=== PATIENT | female | born 1960 | race Caucasian/White ===

== ENCOUNTER 2017-03-19 18:22 | Inpatient (IN) | payer OTHER ==
[2017-03-19] MEDS ORDERED: ACETAMINOPHEN TAB 500 MG TAB PO STA (19:12)
[2017-03-19] MEDS ORDERED: IBUPROFEN 600 MG TAB PO STA (19:12)
[2017-03-19] MEDS ORDERED: PIPERACILLIN-TAZOBACTAM 3.375 GM in DEXTROSE/WATER 1 50ML.BAG IVPB STA (19:12)
[2017-03-19] MEDS ORDERED: SODIUM CHLORIDE 0.45% 1,000 ML IV SCH (19:15)
[2017-03-19] MEDS ORDERED: HYDROmorphone 1 MG/ML 1 ML SYRINGE IVP STA ×2 (19:16→22:34)
[2017-03-19] MEDS ORDERED: IOHEXOL 350 MG/ML 25 ML BOTTLE (ORAL USE) PO PRN (19:17)
[2017-03-19] MEDS ORDERED: RX INFO: IV CONTRAST WAS GIVEN 1 EACH MISC MISCELLANE PRN (19:17)
--- NOTE | 2017-03-19 19:35 | ED ---
Abdominal Pain HPI <Larry Grier - Last Filed: 03/19/17 22:34> - General Source: patient, RN notes reviewed, old records reviewed Mode of arrival: ambulatory <Monica Zelaya - Last Filed: 03/19/17 22:56> - General Chief Complaint: Abdominal Pain Stated Complaint: POSS APPENDICITIS Time Seen by Provider: 03/19/17 18:56 - History of Present Illness Initial Comments: This is a 56-year-old female presents to the emergency Department chief complaint of right lower quadrant abdominal pain, fevers, and headache since Thursday evening. Patient reports that she missed her primary care doctor and they sent her to have a CAT scan done at [facility] yesterday. At that time she reports her CAT scan was inconclusive. She's been running a fever 140 101 for the past few days. She's had no recent Motrin or Tylenol. She reports she's had very little appetite and nausea. Denies any melena or hematochezia. Patient states that she's had a few loose stools. Patient relates that she's also noticed that the pain radiates from her right lower quadrant towards her right back. She has not been drinking fluids such noticed her urine has been darker than usual. Patient relates that she has no neck pain or neck stiffness, vision changes, chest pain, shortness of breath. She reports that she's had a history of sinus infections over the past few months, antibiotics use was approximately 2 months ago and she completed a steroid course approximately 2 weeks ago. Patient denies any recent shortness of breath, chest pain, back pain, vomiting, numbness or tingling, hematuria, headaches or visual changes, or any other current symptoms (Monica Zelaya) - Related Data Home Medications Medication Instructions Recorded Confirmed Budesonide/Formoterol Fumarate 1 puff INHALATION RT-BID 03/19/17 03/19/17 [Symbicort 160-4.5 Mcg Inhaler] Cetirizine HCl [Zyrtec] 10 mg PO DAILY PRN 03/19/17 03/19/17 Chlorthalidone 25 mg PO DAILY 03/19/17 03/19/17 HYDROcodone/APAP 7.5-325MG [[place] 1 tab PO TID 03/19/17 03/19/17 7.5-325] Ibuprofen [Advil] 200 mg PO Q8HR PRN 03/19/17 03/19/17 Letrozole [Femara] 2.5 mg PO DAILY 03/19/17 03/19/17 QUEtiapine [SEROquel] 50 mg PO HS 03/19/17 03/19/17 Topiramate [Topamax] 25 mg PO BID 03/19/17 03/19/17 Venlafaxine HCl [Effexor XR] 75 mg PO DAILY 03/19/17 03/19/17 cloNIDine HCL 0.3 mg PO TID 03/19/17 03/19/17 clonazePAM [KlonoPIN] 0.5 mg PO TID 03/19/17 03/19/17 diphenhydrAMINE HCL [Benadryl] 25 mg PO DAILY PRN 03/19/17 03/19/17 Allergies Allergy/AdvReac Type Severity Reaction Status Date / Time Sulfa (Sulfonamide Allergy Rash/Hives Verified 03/19/17 19:01 Antibiotics) Review of Systems ROS Other: All systems not noted in ROS Statement are negative. <Larry Grier - Last Filed: 03/19/17 22:34> ROS Other: All systems not noted in ROS Statement are negative. <Monica Zelaya - Last Filed: 03/19/17 22:56> ROS Statement: Those systems with pertinent positive or pertinent negative responses have been documented in the HPI. Past Medical History Past Medical History: Cancer, Hypertension Additional Past Medical History / Comment(s): BREAST AND OVARIAN CANCER History of Any Multi-Drug Resistant Organisms: None Reported Past Surgical History: Hysterectomy Additional Past Surgical History / Comment(s): PARTIAL MASTECTOMY Past Psychological History: Depression Smoking Status: Never smoker Past Alcohol Use History: Occasional Past Drug Use History: None Reported <Monica Zelaya - Last Filed: 03/19/17 22:56> General Exam <Larry Grier - Last Filed: 03/19/17 22:34> General appearance: alert, in no apparent distress Head exam: Present: atraumatic, normocephalic, normal inspection Eye exam: Present: normal appearance, PERRL, EOMI. Absent: scleral icterus, conjunctival injection, periorbital swelling ENT exam: Present: normal exam, mucous membranes moist Neck exam: Present: normal inspection. Absent: tenderness, meningismus, lymphadenopathy Respiratory exam: Present: normal lung sounds bilaterally. Absent: respiratory distress, wheezes, rales, rhonchi, stridor Cardiovascular Exam: Present: regular rate, normal rhythm, normal heart sounds. Absent: systolic murmur, diastolic murmur, rubs, gallop, clicks GI/Abdominal exam: Present: soft, tenderness (RLQ and RUQ and Right CVA tenderness), normal bowel sounds. Absent: distended, guarding, rebound, rigid Extremities exam: Present: normal inspection, full ROM, normal capillary refill. Absent: tenderness, pedal edema, joint swelling, calf tenderness Back exam: Present: normal inspection Neurological exam: Present: alert, oriented X3, CN II-XII intact Psychiatric exam: Present: normal affect, normal mood Skin exam: Present: warm, dry, intact, normal color. Absent: rash <Monica Zelaya - Last Filed: 03/19/17 22:56> - General Exam Comments Initial Comments: 56-year-old female. Appears in moderate discomfort. (Monica Zelaya) Vital Signs 03/19/17 03/19/17 03/19/17 18:47 20:00 21:00 Temperature 101.8 F H 99.8 F H Pulse Rate 92 90 96 Respiratory 18 18 20 Rate Blood Pressure 154/89 136/80 148/90 O2 Sat by Pulse 97 98 98 Oximetry 03/19/17 22:29 Temperature 98.9 F Pulse Rate 65 Respiratory 20 Rate Blood Pressure 103/58 O2 Sat by Pulse 97 Oximetry Medical Decision Making - Lab Data Result diagrams: 03/19/17 15:45 03/19/17 15:45 <Larry Grier - Last Filed: 03/19/17 22:34> - Lab Data Result diagrams: 03/19/17 15:45 03/19/17 15:45 - Radiology Data Radiology results: report reviewed <Monica Zelaya - Last Filed: 03/19/17 22:56> - Medical Decision Making vital decision making. I examine the patient she has pain in the right flank toward the right mid abdomen and right lower quadrant. Patient reports his pains began on again off again for 6-7 days. She had a CAT scan done [facility] yesterday which was nonspecific relative to the appendix and that he could not be seen. The patient's fever spiked today 101.8. She is comfortable with our emergency room. The significant findings today finds a white count of 13.7 hemoglobin 13 hematocrit 39 with a BUN of 17 creatinine 0.7 GFR greater than 60. The patient's CAT scan does show 2 mm ureteral calculus within the proximal right ureter with mild surrounding. Referral fat stranding in a euro epithelial thickening. No resultant hydronephrosis noted. urine shows 111 white cells 2 red cells large leuk esterase no significant epithelial 4 squamous cells.This case was discussed with on-call urologist Dr. Humphrey. Results examination CAT scan labs all discussed. He wants the patient admitted to medicine. Antonia nurse practitioner taking call for Dr. Morgan has been notified. The patient had been started on Zosyn early presumptive diagnosis of appendicitis initially. She'll be switched to Levaquin. We also discussed possibility of pyelonephritis. For the evaluation by urology. Dr. Grier (Larry Grier) 56-year-old male presents emergency Department with right lower quadrant and right flank pain for the past 7 days as well as a headache. She had a CAT scan done yesterday which showed no specific findings. She fever again and prescribed her, emergency department. At this time patient's lab work shows mild leukocytosis of 13.7. Patient does have a significant urinary tract infection with 100 white blood cells, nitrates are negative however. Patient was given IV fluids, and started on Zosyn as clinically she seemed to have more of a picture of appendicitis. Patient's CAT scan shows evidence of a 2 mm stone in the right ureter as well as some perinephric stranding and inflammation. Discussed this with Heather, nurse practitioner for Dr. kaye. We will also consult Dr. mahoney for urology. He prefers that patient is admitted under medicine with consult to urology. At this time patient will be started on Levaquin as well. Patient understands treatment plan will comply. (Monica Zelaya) - Lab Data Lab Results 03/19/17 03/19/17 03/19/17 Range/Units 15:45 15:45 15:45 WBC 13.7 H (3.8-10.6) k/uL RBC 4.05 (3.80-5.40) m/uL Hgb 13.4 (11.4-16.0) gm/dL Hct 39.0 (34.0-46.0) % MCV 96.4 (80.0-100.0) fL MCH 33.2 (25.0-35.0) pg MCHC 34.4 (31.0-37.0) g/dL RDW 13.9 (11.5-15.5) % Plt Count 241 (150-450) k/uL Neutrophils % 85 % Lymphocytes % 7 % Monocytes % 5 % Eosinophils % 1 % Basophils % 1 % Neutrophils # 11.7 H (1.3-7.7) k/uL Lymphocytes # 1.0 (1.0-4.8) k/uL Monocytes # 0.7 (0-1.0) k/uL Eosinophils # 0.1 (0-0.7) k/uL Basophils # 0.1 (0-0.2) k/uL PT (9.0-12.0) sec INR (<1.2) APTT (22.0-30.0) sec Sodium 133 L (137-145) mmol/L Potassium 3.7 (3.5-5.1) mmol/L Chloride 100 (98-107) mmol/L Carbon Dioxide 24 (22-30) mmol/L Anion Gap 9 mmol/L BUN 17 (7-17) mg/dL Creatinine 0.70 (0.52-1.04) mg/dL Est GFR (MDRD) Af Amer >60 (>60 ml/min/1.73 sqM) Est GFR (MDRD) Non-Af >60 (>60 ml/min/1.73 sqM) Glucose 132 H (74-99) mg/dL Plasma Lactic Acid Efrem 1.3 (0.7-2.0) mmol/L Calcium 8.9 (8.4-10.2) mg/dL Total Bilirubin 0.6 (0.2-1.3) mg/dL AST 23 (14-36) U/L ALT 30 (9-52) U/L Alkaline Phosphatase 120 (38-126) U/L Troponin I (0.000-0.034) ng/mL Total Protein 6.5 (6.3-8.2) g/dL Albumin 3.5 (3.5-5.0) g/dL Urine Color Urine Appearance (Clear) Urine pH (5.0-8.0) Ur Specific [place] (1.001-1.035) Urine Protein (Negative) Urine Glucose (UA) (Negative) Urine Ketones (Negative) Urine Blood (Negative) Urine Nitrite (Negative) Urine Bilirubin (Negative) Urine Urobilinogen (<2.0) mg/dL Ur Leukocyte Esterase (Negative) Urine RBC (0-5) /hpf Urine WBC (0-5) /hpf Ur Squamous Epith Cells (0-4) /hpf Urine Bacteria (None) /hpf Hyaline Casts (0-2) /lpf Urine Mucus (None) /hpf Influenza Type A RNA (Not Detectd) Influenza Type B (PCR) (Not Detectd) 03/19/17 03/19/17 03/19/17 Range/Units 15:45 20:05 21:00 WBC (3.8-10.6) k/uL RBC (3.80-5.40) m/uL Hgb (11.4-16.0) gm/dL Hct (34.0-46.0) % MCV (80.0-100.0) fL MCH (25.0-35.0) pg MCHC (31.0-37.0) g/dL RDW (11.5-15.5) % Plt Count (150-450) k/uL Neutrophils % % Lymphocytes % % Monocytes % % Eosinophils % % Basophils % % Neutrophils # (1.3-7.7) k/uL Lymphocytes # (1.0-4.8) k/uL Monocytes # (0-1.0) k/uL Eosinophils # (0-0.7) k/uL Basophils # (0-0.2) k/uL PT (9.0-12.0) sec INR (<1.2) APTT (22.0-30.0) sec Sodium (137-145) mmol/L Potassium (3.5-5.1) mmol/L Chloride (98-107) mmol/L Carbon Dioxide (22-30) mmol/L Anion Gap mmol/L BUN (7-17) mg/dL Creatinine (0.52-1.04) mg/dL Est GFR (MDRD) Af Amer (>60 ml/min/1.73 sqM) Est GFR (MDRD) Non-Af (>60 ml/min/1.73 sqM) Glucose (74-99) mg/dL Plasma Lactic Acid Efrem (0.7-2.0) mmol/L Calcium (8.4-10.2) mg/dL Total Bilirubin (0.2-1.3) mg/dL AST (14-36) U/L ALT (9-52) U/L Alkaline Phosphatase (38-126) U/L Troponin I <0.012 (0.000-0.034) ng/mL Total Protein (6.3-8.2) g/dL Albumin (3.5-5.0) g/dL Urine Color Yellow Urine Appearance Cloudy H (Clear) Urine pH 6.0 (5.0-8.0) Ur Specific [place] 1.010 (1.001-1.035) Urine Protein Trace H (Negative) Urine Glucose (UA) Negative (Negative) Urine Ketones Negative (Negative) Urine Blood Negative (Negative) Urine Nitrite Negative (Negative) Urine Bilirubin Negative (Negative) Urine Urobilinogen <2.0 (<2.0) mg/dL Ur Leukocyte Esterase Large H (Negative) Urine RBC 1 (0-5) /hpf Urine WBC 111 H (0-5) /hpf Ur Squamous Epith Cells 2 (0-4) /hpf Urine Bacteria Occasional H (None) /hpf Hyaline Casts 1 (0-2) /lpf Urine Mucus Rare H (None) /hpf Influenza Type A RNA Not Detected (Not Detectd) Influenza Type B (PCR) Not Detected (Not Detectd) 03/19/17 Range/Units 21:38 WBC (3.8-10.6) k/uL RBC (3.80-5.40) m/uL Hgb (11.4-16.0) gm/dL Hct (34.0-46.0) % MCV (80.0-100.0) fL MCH (25.0-35.0) pg MCHC (31.0-37.0) g/dL RDW (11.5-15.5) % Plt Count (150-450) k/uL Neutrophils % % Lymphocytes % % Monocytes % % Eosinophils % % Basophils % % Neutrophils # (1.3-7.7) k/uL Lymphocytes # (1.0-4.8) k/uL Monocytes # (0-1.0) k/uL Eosinophils # (0-0.7) k/uL Basophils # (0-0.2) k/uL PT 10.1 (9.0-12.0) sec INR 1.0 (<1.2) APTT 27.2 (22.0-30.0) sec Sodium (137-145) mmol/L Potassium (3.5-5.1) mmol/L Chloride (98-107) mmol/L Carbon Dioxide (22-30) mmol/L Anion Gap mmol/L BUN (7-17) mg/dL Creatinine (0.52-1.04) mg/dL Est GFR (MDRD) Af Amer (>60 ml/min/1.73 sqM) Est GFR (MDRD) Non-Af (>60 ml/min/1.73 sqM) Glucose (74-99) mg/dL Plasma Lactic Acid Efrem (0.7-2.0) mmol/L Calcium (8.4-10.2) mg/dL Total Bilirubin (0.2-1.3) mg/dL AST (14-36) U/L ALT (9-52) U/L Alkaline Phosphatase (38-126) U/L Troponin I (0.000-0.034) ng/mL Total Protein (6.3-8.2) g/dL Albumin (3.5-5.0) g/dL Urine Color Urine Appearance (Clear) Urine pH (5.0-8.0) Ur Specific [place] (1.001-1.035) Urine Protein (Negative) Urine Glucose (UA) (Negative) Urine Ketones (Negative) Urine Blood (Negative) Urine Nitrite (Negative) Urine Bilirubin (Negative) Urine Urobilinogen (<2.0) mg/dL Ur Leukocyte Esterase (Negative) Urine RBC (0-5) /hpf Urine WBC (0-5) /hpf Ur Squamous Epith Cells (0-4) /hpf Urine Bacteria (None) /hpf Hyaline Casts (0-2) /lpf Urine Mucus (None) /hpf Influenza Type A RNA (Not Detectd) Influenza Type B (PCR) (Not Detectd) 03/19/17 21:53 EKG shows normal sinus rhythm. Evidence of left axis deviation. There is incomplete right bundle-branch block. Ventricular rate of 76 bpm. MI interval 144 ms. QRS duration 102 ms. QT QTc is 394/443 ms. There is a small T-wave depression in V1. No other T-wave inversions or ST elevation. No atrial or ventricular arrhythmias. (Monica Zelaya) - Radiology Data 2 mm ureteral calculus within the proximal right ureter with surrounding periureteral fat stranding in-year-old feel ill thickening. No resultant hydronephrosis likely due to the small size of calculus. Mild hepatic steatosis. This is unchanged from prior. There is also a stable 6 mm right middle lobe pulmonary nodule. Prior exam in 2012 this was stated to be likely stable waiting back to 2013. (Monica Zelaya) Disposition <Larry Grier - Last Filed: 03/19/17 22:34> Time of Disposition: 22:55 <Monica Zelaya - Last Filed: 03/19/17 22:56> Clinical Impression: Right ureteral stone, Pyelonephritis Disposition: ADMITTED IP TO THIS HOSP Condition: Stable Referrals: Ang Anguiano MD [Primary Care Provider] - 1-2 days
[2017-03-19] MEDS: SODIUM CHLORIDE 0.9% 500 ML IV SCH (19:42)
[2017-03-19 20:01] LABS: Basophils # (A) 0.1 k/uL (0-0.2); Basophils % (A) 1 %; CH 33.8; CHCM 35.2; Eosinophils # (A) 0.1 k/uL (0-0.7); Eosinophils % (A) 1 %; HDW 2.71; HGB 13.4 gm/dL (11.4-16.0); Luc # (Auto) 0.21; Luc % (Auto) 2; Lymphocytes % (A) 7 %; MCH 33.2 pg (25.0-35.0); MCHC 34.4 g/dL (31.0-37.0); MCV 96.4 fL (80.0-100.0); Mean Platelet Volume 7.5; Monocytes # (A) 0.7 k/uL (0-1.0); Monocytes % (A) 5 %; Neutrophils # (A) 11.7 k/uL (1.3-7.7); Neutrophils % (A) 85 %; RBC 4.05 m/uL (3.80-5.40); RDW 13.9 % (11.5-15.5); WBC 13.7 k/uL (3.8-10.6)
[2017-03-19 20:14] LABS: Anion Gap 9 mmol/L; Calcium 8.9 mg/dL (8.4-10.2); Carbon Dioxide 24 mmol/L (22-30); Chloride 100 mmol/L (98-107); Glucose 132 mg/dL (74-99); Non-African American GFR(MDRD) >60 (>60 ml/min/1.73 sqM); Sodium 133 mmol/L (137-145); Total Bilirubin 0.6 mg/dL (0.2-1.3); Total Protein 6.5 g/dL (6.3-8.2)
[2017-03-19 20:15] LABS: ALT 30 U/L (9-52); AST 23 U/L (14-36); Alkaline Phosphatase 120 U/L (38-126); Blood Urea Nitrogen 17 mg/dL (7-17); Potassium 3.7 mmol/L (3.5-5.1)
[2017-03-19 21:09] LABS: Appearance,Urine Cloudy (Clear); Bacteria,Urine Occasional /hpf; Bilirubin,Urine Negative (Negative); Glucose,Urine (UA) Negative (Negative); Ketones,Urine Negative (Negative); Leukocyte Esterase,Urine Large (Negative); Mucus,Urine Rare /hpf; Nitrite,Urine Negative (Negative); Particle Count 48942; Protein,Urine Trace (Negative); RBC,Urine 1 /hpf (0-5); Squamous Epithelial Cell,Urine 2 /hpf (0-4); UA Billing (MACRO vs. MICRO) MICRO; Urobilinogen,Urine <2.0 mg/dL (<2.0); WBC,Urine 111 /hpf (0-5)
--- NOTE | 2017-03-19 21:12 | XR ---
EXAMINATION TYPE: XR chest 2V DATE OF EXAM: 03/19/2017 COMPARISON: 09/29/2014 HISTORY: Fever TECHNIQUE: Frontal and lateral views of the chest are obtained. FINDINGS: Granulomas within the right lung apex are unchanged from 09/29/2014. There is no focal air sp caridad opacity, pleural effusion, or pneumothorax seen. The cardiac silhouette size is enlarged. The osseous structures are intact. Surgical clips are present within the right chest wall and axilla. Rou nded densities over the right proximal humerus are unchanged. Minimal degenerative changes changes of the thoracic spine are seen. IMPRESSION: No acute cardiopulmonary process.
--- NOTE | 2017-03-19 21:55 | CT ---
EXAMINATION TYPE: CT abdomen pelvis w con DATE OF EXAM: 03/19/2017 HISTORY: Right side abdominal pain. CT DLP: 3152.3mGycm Automated Exposure Control for Dose Reduction was Utilized. CONTRAST: CT scan of the abdomen and pelvis is performed with IV Contrast, patient injected with 100 mL of Omni paque 300. COMPARISON: 03/26/2016 FINDINGS: LUNG BASES: Solitary 6 mm right middle lobe pulmonary nodule is unchanged from the prior exam of 03/02. LIVER/GB: Hepatic parenchyma is again mildly hypoattenuated in comparison to that of the spleen likel y relating to an mild hepatic steatosis. No intrahepatic biliary ductal dilatation. Gallbladder is un remarkable without radiopaque calculus. PANCREAS: No significant abnormality is seen. No ductal dilatation. Mild pancreatic atrophy. SPLEEN: Single benign granulomas seen within the splenic parenchyma. ADRENALS: No significant abnormality is seen. KIDNEYS: The kidneys are slightly malrotated with there are axis is pointed posteriorly. There is a p unctate 2 mm calculus within the proximal right ureter with surrounding periureteral fat stranding an d mild perinephric fat stranding seen on series 3 image 50 through 55. Mild uroepithelial thickening is also seen of this ureter. There is no proximal hydronephrosis seen likely due to the small size of the calculus. BOWEL: No significant abnormality is seen. Nondilated with no evidence of obstruction. LYMPH NODES: No greater than 1cm abdominal or pelvic lymph nodes are appreciated. Likely calcified ly mph node is seen adjacent to the right ureter, stable from the prior exam. OSSEOUS STRUCTURES: No significant abnormality is seen. OTHER: Aorta is of normal course and caliber. There is diastases recti with a small fat filled umbili ventura hernia. IMPRESSION: 1. There is a 2 mm ureteral calculus within the proximal right ureter with mild surrounding periurete ral fat stranding and uroepithelial thickening. No resultant hydronephrosis likely due to the small s ize of the calculus. 2. Mild hepatic steatosis, unchanged from the prior. 3. Stable 6 mm right middle lobe pulmonary nodule. On the prior examination in 2015 this was stated t o be likely stable dating back to 2013.
[2017-03-19 22:21] LABS: Prothrombin Time 10.1 sec (9.0-12.0)
[2017-03-19] MEDS ORDERED: KETOROLAC 30 MG/ML 1 ML VIAL IVP STA (22:34)
[2017-03-19 22:38] LABS: Partial Thromboplastin Time 27.2 sec (22.0-30.0)
[2017-03-19] MEDS ORDERED: LEVOFLOXACIN 750MG-D5W PMX 750 MG in DEXTROSE/WATER 1 150ML.BAG IVPB STA (22:53)
[2017-03-19] MEDS ORDERED: ACETAMINOPHEN TAB 325 MG TAB PO PRN (22:57)
[2017-03-19] MEDS ORDERED: LORazepam 2 MG/ML INJ IV PRN (22:57)
[2017-03-19] MEDS ORDERED: IBUPROFEN 400 MG TAB PO PRN (22:57)
[2017-03-19] MEDS ORDERED: ONDANSETRON 4 MG/2 ML VIAL IVP PRN (22:57)
[2017-03-19] MEDS ORDERED: NALOXONE 0.4 MG/ML 1 ML VIAL IV PRN (22:57)
[2017-03-19] MEDS ORDERED: KETOROLAC 30 MG/ML 1 ML VIAL IVP PRN (22:57)
[2017-03-19] MEDS ORDERED: TAMSULOSIN 0.4 MG CAP.ER.24H PO STA (23:01)
[2017-03-19] MEDS ORDERED: HYDROmorphone 1 MG/ML 1 ML SYRINGE IVP SCH (23:30)
[2017-03-20] MEDS ORDERED: IBUPROFEN 200 MG TAB PO PRN (00:17)
[2017-03-20] MEDS ORDERED: LORATADINE 10 MG TAB PO PRN (00:17)
[2017-03-20] MEDS ORDERED: diphenhydrAMINE 25 MG CAP PO PRN (00:17)
[2017-03-20] MEDS: SODIUM CHLORIDE 0.9% 1,000 ML IV SCH ×4 (00:25→20:23)
[2017-03-20] MEDS: SODIUM CHLORIDE 0.9% 500 ML IV SCH ×2 (00:25→00:26)
[2017-03-20] MEDS ORDERED: HYDROmorphone 1 MG/ML 1 ML SYRINGE IM PRN (00:29)
[2017-03-20] MEDS: HYDROmorphone 1 MG/ML 1 ML SYRINGE IVP PRN ×2 (02:28→05:24)
[2017-03-20] MEDS: SYMBICORT 160-4.5 MCG INHALER INHALATION SCH ×2 (07:09→20:10)
[2017-03-20] MEDS: HYDROcodone/APAP 7.5-325MG 1 EACH TAB PO SCH ×3 (08:19→21:30)
[2017-03-20] MEDS: clonazePAM 0.5 MG TAB PO SCH ×3 (08:20→21:30)
[2017-03-20] MEDS: LETROZOLE 2.5 MG TAB PO SCH (08:20)
[2017-03-20] MEDS: VENLAFAXINE HCL ER 75 MG CAP PO SCH (08:20)
[2017-03-20] MEDS: TOPIRAMATE 25 MG TAB PO SCH ×2 (08:20→20:23)
[2017-03-20] MEDS: cloNIDine HCL 0.1 MG TAB PO SCH ×3 (08:26→21:30)
[2017-03-20] MEDS: CHLORTHALIDONE 25 MG TAB PO SCH (08:26)
--- NOTE | 2017-03-20 08:29 | P.GSCN ---
History of Present Illness Consult date: 03/20/17 Reason for Consult: Possible right ureteral calculus History of present illness: The patient is a 56-year-old female transferred from the [facility] emergency room for evaluation of a fever and abdominal pain. The patient says that her pain began in the right flank one week ago and at that time was associated with a low-grade fever. The patient also had diarrhea which began at the same time and persisted until 03/16 or 03/17. She continued to have pain in the right flank with radiation towards the umbilicus and was evaluated by Dr. Anguiaon on 03/18. Computed tomography scan of the abdomen and pelvis was obtained due to concern that she may have appendicitis but was nondiagnostic. The patient continued to have pain and a low-grade fever and was transferred for further evaluation. She was evaluated in the [facility] ER and initially was noted to have a temperature of 101.8. Her white blood count was 13,700. E1 was 17 and creatinine was 0.7. Urinalysis showed 111 white cells 1 red cells 2 epithelial cells but was negative for nitrite and no bacteria were seen. The patient was guarded on Levaquin. Computed tomography scan of the abdomen and pelvis without IV contrast was interpreted as showing a possible "punctate" 2 mm proximal right ureteral calculus however no hydronephrosis was present. The patient has remained afebrile since she was admitted. She says she feels somewhat better. She believes she may have passed a kidney stone 2007. She has had no gross hematuria and does not have a history of recurrent urinary tract infections. He says she's had no bowel movement since 03/17. She denies a cough or shortness of breath. Review of Systems - Constitutional Reports chronic headaches, Reports sweats - Cardiovascular Denies chest pain, Denies shortness of breath - Respiratory Denies cough, Denies wheezing - Gastrointestinal Reports as per HPI - Genitourinary Genitourinary: Reports as per HPI Past Medical History Past Medical History: Asthma, Cancer, Hypertension Additional Past Medical History / Comment(s): BREAST (2011) AND LEFT OVARIAN ( 2012)CANCER History of Any Multi-Drug Resistant Organisms: None Reported Past Surgical History: Hysterectomy Additional Past Surgical History / Comment(s): PARTIAL right MASTECTOMY Past Anesthesia/Blood Transfusion Reactions: No Reported Reaction Past Psychological History: Depression Smoking Status: Former smoker Past Alcohol Use History: Occasional Past Drug Use History: None Reported Medications and Allergies Home Medications Medication Instructions Recorded Confirmed Type Budesonide/Formoterol Fumarate 1 puff INHALATION RT-BID 03/19/17 03/19/17 History [Symbicort 160-4.5 Mcg Inhaler] Cetirizine HCl [Zyrtec] 10 mg PO DAILY PRN 03/19/17 03/19/17 History Chlorthalidone 25 mg PO DAILY 03/19/17 03/19/17 History HYDROcodone/APAP 7.5-325MG [[place] 1 tab PO TID 03/19/17 03/19/17 History 7.5-325] Ibuprofen [Advil] 200 mg PO Q8HR PRN 03/19/17 03/19/17 History Letrozole [Femara] 2.5 mg PO DAILY 03/19/17 03/19/17 History QUEtiapine [SEROquel] 50 mg PO HS 03/19/17 03/19/17 History Topiramate [Topamax] 25 mg PO BID 03/19/17 03/19/17 History Venlafaxine HCl [Effexor XR] 75 mg PO DAILY 03/19/17 03/19/17 History cloNIDine HCL 0.3 mg PO TID 03/19/17 03/19/17 History clonazePAM [KlonoPIN] 0.5 mg PO TID 03/19/17 03/19/17 History diphenhydrAMINE HCL [Benadryl] 25 mg PO DAILY PRN 03/19/17 03/19/17 History Allergies Allergy/AdvReac Type Severity Reaction Status Date / Time Sulfa (Sulfonamide Allergy Rash/Hives Verified 03/19/17 19:01 Antibiotics) Surgical - Exam Vital Signs Temp Pulse Resp BP Pulse Ox 101.8 F H 92 18 154/89 97 03/19/17 18:47 03/19/17 18:47 03/19/17 18:47 03/19/17 18:47 03/19/17 18:47 - General no distress, obese - Respiratory normal respiratory effort - Abdomen Abdomen: soft, non tender, no organomegaly - Psychiatric memory intact Results - Labs 03/19/17 15:45 03/19/17 15:45 Abnormal Lab Results - Last 24 Hours (Table) 03/19/17 03/19/17 03/19/17 Range/Units 15:45 15:45 21:00 WBC 13.7 H (3.8-10.6) k/uL Neutrophils # 11.7 H (1.3-7.7) k/uL Sodium 133 L (137-145) mmol/L Glucose 132 H (74-99) mg/dL Urine Appearance Cloudy H (Clear) Urine Protein Trace H (Negative) Ur Leukocyte Esterase Large H (Negative) Urine WBC 111 H (0-5) /hpf Urine Bacteria Occasional H (None) /hpf Urine Mucus Rare H (None) /hpf Microbiology - Last 24 Hours (Table) 03/19/17 21:00 Urine Culture - Preliminary Urine,Voided Diabetes panel 03/19/17 Range/Units 15:45 Sodium 133 L (137-145) mmol/L Potassium 3.7 (3.5-5.1) mmol/L Chloride 100 (98-107) mmol/L Carbon Dioxide 24 (22-30) mmol/L BUN 17 (7-17) mg/dL Creatinine 0.70 (0.52-1.04) mg/dL Glucose 132 H (74-99) mg/dL Calcium 8.9 (8.4-10.2) mg/dL AST 23 (14-36) U/L ALT 30 (9-52) U/L Alkaline Phosphatase 120 (38-126) U/L Total Protein 6.5 (6.3-8.2) g/dL Albumin 3.5 (3.5-5.0) g/dL Calcium panel 03/19/17 Range/Units 15:45 Calcium 8.9 (8.4-10.2) mg/dL Albumin 3.5 (3.5-5.0) g/dL Pituitary panel 03/19/17 Range/Units 15:45 Sodium 133 L (137-145) mmol/L Potassium 3.7 (3.5-5.1) mmol/L Chloride 100 (98-107) mmol/L Carbon Dioxide 24 (22-30) mmol/L BUN 17 (7-17) mg/dL Creatinine 0.70 (0.52-1.04) mg/dL Glucose 132 H (74-99) mg/dL Calcium 8.9 (8.4-10.2) mg/dL Adrenal panel 03/19/17 Range/Units 15:45 Sodium 133 L (137-145) mmol/L Potassium 3.7 (3.5-5.1) mmol/L Chloride 100 (98-107) mmol/L Carbon Dioxide 24 (22-30) mmol/L BUN 17 (7-17) mg/dL Creatinine 0.70 (0.52-1.04) mg/dL Glucose 132 H (74-99) mg/dL Calcium 8.9 (8.4-10.2) mg/dL Total Bilirubin 0.6 (0.2-1.3) mg/dL AST 23 (14-36) U/L ALT 30 (9-52) U/L Alkaline Phosphatase 120 (38-126) U/L Total Protein 6.5 (6.3-8.2) g/dL Albumin 3.5 (3.5-5.0) g/dL - Imaging CT scan - abdomen: image reviewed (I personally reviewed the patient's computed tomography scan and also reviewed it with . The patient has no right hydronephrosis and it's unclear whether there is a definite calculus in the proximal right ureter.) Assessment and Plan Assessment: The patient's fever, flank pain and abnormal urinalysis suggested possible right pyelonephritis. The computed tomography scan findings are not conclusive for a proximal right ureteral calculus. No right renal calculi were noted on a computed tomography scan performed in 03/2016. There is no right hydronephrosis and at the present time I believe that further observation and the use of Levaquin pending results of the urine culture are appropriate. (1) Pyelonephritis Current Visit: Yes Status: Acute Code(s): N12 - TUBULO-INTERSTITIAL NEPHRITIS, NOT SPCF ACUTE OR CHRONIC SNOMED Code(s): 01582995
[2017-03-20] MEDS ORDERED: PANTOPRAZOLE 40 MG/10 ML VIAL IV SCH (09:00)
--- NOTE | 2017-03-20 14:18 | CDI ---
In responding to this query, please exercise your independent professional judgment. The [facility] Coding Staff and Clinical Documentation Specialists appreciate your assistance in clarifying documentation, maintaining compliance with coding guidelines, accurately documenting patients condition and capturing severity of illness. The fact that a question is asked does not imply that any particular answer is desired or expected. Communication forms are a method of clarifying documentation and are not made part of the Legal Health Record. Thank you in advance for your clarification. Last Revision, April 2015 Byron Dias [address] [facility] [place] [address] Documentation Clarification Form Date: 03/20/2017 1:42:00 PM From: Kaykay Oneill Admit Date: 03/19/2017 11:03:00 PM Patient Name: Lynn Guerrero Visit Number: [id number] Discharge Date: Dr. Oseas Humphrey Pyelonephritis is documented in your consult on . Patient history/risk factors: Breast and Ovarian cancer, Hypertension Clinical Indicators: Present with complaints of right flank pain and low-grade fever. Lab findings: WBC 13.7; UA Leukocyte Esterase Large, WBC 111, Bacteria Occasional, Nitrate -Negative Radiology findings: Possible punctate 2 mm proximal right ureteral calculus without hydronephrosis. Vital Signs: 154/89 92 18 101.8 Other Clinical Indicators: ED evaluation: Right ureteral stone, Pyelonephritis Treatment: Levaquin IV, IV Zosyn Toradol IV PRN Dilaudid IV PRN IV Fluids In your professional opinion, can you please clarify Pyelonephritis? Acute Pyelonephritis Chronic Pyelonephritis With or without infectious process (specify bacteria (type) or virus if known Other, Specify Unable to determine Please document in your progress notes in order to capture severity of illness and risk of mortality. Include clinical findings that support your diagnosis. FYI: Press F11 to launch patient chart. RUTHY
[2017-03-20] MEDS: IBUPROFEN 400 MG TAB PO PRN ×2 (15:14→23:36)
--- NOTE | 2017-03-20 15:45 | HP ---
HISTORY AND PHYSICAL DATE OF ADMISSION: 03/19/2017. DATE OF SERVICE: 03/20/2017 PRESENTING COMPLAINT: Abdominal pain. HISTORY OF PRESENTING COMPLAINT: A very pleasant, 56-year-old patient of Dr. Anguiano. Chronic stable medical conditions include asthma, depression, hypertension. The patient about a week ago started off with pain in the right flank going down to the front of the abdomen and going down to the pelvic area, had a fever up to 104, started off with nausea, vomiting, also having significant diarrhea for at least 3 days, associated headache; tired, run down. The pain is still present in the belly, not able to keep much food down. CT scan did show calculus in the right ureter; hence, patient admitted for the same. Patient did receive IV antibiotics. No prior history of stone. REVIEW OF SYSTEMS: CONSTITUTIONAL: Weak, tired, febrile. HEENT: None. RESPIRATORY: None. CARDIOVASCULAR: None. GASTROINTESTINAL: As above. GENITOURINARY: Some urinary frequency. DERMATOLOGICAL: None. HEMATOLOGIC: None. LYMPHATIC: None. PSYCHIATRY: None. NEUROLOGICAL: None. PAST HISTORY: Asthma, depression, hypertension, left ovarian cancer, germ cell type back in 2002, is being followed, and breast cancer in 2011. PAST SURGICAL HISTORY: Hysterectomy, partial right mastectomy. SOCIAL HISTORY: . Alcohol occasionally. Does not smoke. FAMILY HISTORY: Reviewed. Noncontributory to presentation. HOME MEDICATIONS: 1. Benadryl 25 mg p.o. daily p.r.n. 2. Klonopin 0.5 p.o. t.i.d. 3. Clonidine 0.3 mg p.o. t.i.d. 4. Effexor XR 75 mg p.o. daily. 5. Topamax 25 mg p.o. b.i.d. 6. Seroquel 50 mg p.o. q.h.s. 7. Femara 2.5 mg p.o. daily. 8. Advil 200 mg p.o. p.r.n. 9. [place] 7.5, 1 tablet p.o. t.i.d. 10.Chlorthalidone 25 mg p.o. daily. 11.Zyrtec 10 mg p.o. daily p.r.n. 12.Symbicort 160/4.5, 1 puff b.i.d. ALLERGIES: SULFUR. PHYSICAL EXAMINATION: VITAL SIGNS: On presentation, temperature 101.8, pulse 92, respirations 18, blood pressure 154/89, pulse ox 97% room air. GENERAL APPEARANCE: Well-built, BMI of 52.1. Lying in bed, tired-appearing. EYES: Pupils equal. Conjunctivae normal. HEENT: Oral cavity normal. NECK: JVD not raised. Mass not palpable. RESPIRATORY: Effort normal. LUNGS: Clear. CARDIOVASCULAR: First and second sounds normal. No edema. ABDOMEN: Right flank tenderness. Abdomen soft, nontender. Liver and spleen not palpable. LYMPHATIC: No lymph node palpable in neck or axillae. PSYCHIATRY: Alert and oriented x3. Mood and affect normal. NEUROLOGICAL: Pupils equal. Cranial nerve grossly intact. Power and sensation grossly intact. INVESTIGATIONS: White count 13.7, hemoglobin 13.4. Potassium 3.7, BUN and creatinine are normal. UA positive for leuko esterase, WBC. CT scan of the abdomen and pelvis shows kidneys to be slightly . There is a punctate 2-mm calculus in the proximal right ureter with surrounding periureteral fat stranding and mild perinephric fat stranding. ASSESSMENT: 1. Possible acute right pyelonephritis in a patient with a right ureteral stone. 2. Morbid obesity, body mass index of 52.1. 3. Mild persistent asthma, currently stable. 4. Depression, not otherwise specified. 5. Essential hypertension. PLAN: Urology was consulted. Patient was put on a IV fluids. Also will put the patient on ceftriaxone. Care was discussed with the patient. Urology, Dr. Humphrey was consulted. MMKATEL / ROSEANNN: [id number] /
[2017-03-20] MEDS ORDERED: QUEtiapine 50 MG TAB PO SCH (21:00)
[2017-03-21 02:26] VITALS: TEMP 98.2
[2017-03-21] MEDS: IBUPROFEN 400 MG TAB PO PRN ×2 (05:40→12:10)
[2017-03-21] MEDS: SODIUM CHLORIDE 0.9% 1,000 ML IV SCH ×2 (06:02→09:31)
[2017-03-21] MEDS: SYMBICORT 160-4.5 MCG INHALER INHALATION SCH (07:05)
[2017-03-21 07:16] VITALS: BP 123/58; PULSE 57; RESP 16
[2017-03-21] MEDS ORDERED: PANTOPRAZOLE 40 MG TABLET PO SCH (07:30)
[2017-03-21] MEDS: HYDROcodone/APAP 7.5-325MG 1 EACH TAB PO SCH (09:27)
[2017-03-21] MEDS: clonazePAM 0.5 MG TAB PO SCH (09:27)
[2017-03-21] MEDS: LETROZOLE 2.5 MG TAB PO SCH (09:28)
[2017-03-21] MEDS: CHLORTHALIDONE 25 MG TAB PO SCH (09:28)
[2017-03-21] MEDS: cloNIDine HCL 0.1 MG TAB PO SCH (09:28)
[2017-03-21] MEDS: VENLAFAXINE HCL ER 75 MG CAP PO SCH (09:29)
[2017-03-21] MEDS: TOPIRAMATE 25 MG TAB PO SCH (09:29)
--- NOTE | 2017-03-21 17:27 | DS ---
DISCHARGE SUMMARY DATE OF ADMISSION: 03/19/17. DATE OF DISCHARGE: 03/21/17 FINAL DIAGNOSES: 1. Acute right pyelonephritis from patient having a right ureteral stone obstructing. 2. Morbid obesity. BMI 52.1. 3. Mild persistent asthma stable. 4. Depression, not otherwise specified. 5. Essential hypertension. CONSULTATIONS: Dr. Humphrey. HOSPITAL COURSE: This patient presented with possible pyelonephritis from right ureteral stone. This morning patient noted to passed some grit and symptoms are greatly improved. Patient did well with antibiotics. Afebrile On examination: Abdomen is soft, nontender. Lungs are clear. The patient is okayed by Neurology to be discharged. DISCHARGE MEDICATIONS: 1. Symbicort 160/4.5, 1 puff b.i.d. 2. Zyrtec 10 mg p.o. daily p.r.n. 3. Chlorthalidone 25 mg p.o. daily. 4. [place] 7.5, 1 tablet p.o. t.i.d. 5. Advil 200 mg p.o. p.r.n. 6. Femara 2.5 mg p.o. daily. 7. Seroquel 50 mg p.o. q.h.s. 8. Topamax 25 mg p.o. b.i.d. 9. Effexor XR 75 mg p.o. daily. 10.Clonidine 0.3 mg p.o. t.i.d. 11.Klonopin 0.5 mg p.o. t.i.d. 12.Benadryl 25 mg p.o. daily p.r.n. 13.Tylenol 650 mg p.o. q.6h p.r.n. 14.Ceftin 500 mg p.o. b.i.d., [address] Anguiano in 3 days and follow up with Urology as per them. MMODL / IJN: [id number] /
== END 2017-03-21 14:45 | disposition home or self-care (01) | DRG 694 ==
LOC: EC 18:22 → 3SUR 23:03
PROVIDERS: ADMIT Hospitalist; ATTEND Hospitalist
DX: N20.1 Calculus of ureter (principal); N10 Acute pyelonephritis; Z68.43 Body mass index [BMI] 50.0-59.9, adult; I10 Essential (primary) hypertension; E66.01 Morbid (severe) obesity due to excess calories; F32.9 Major depressive disorder, single episode, unspecified; J45.30 Mild persistent asthma, uncomplicated; Z79.899 Other long term (current) drug therapy; Z87.891 Personal history of nicotine dependence; Z85.43 Personal history of malignant neoplasm of ovary; Z88.2 Allergy status to sulfonamides; Z85.3 Personal history of malignant neoplasm of breast; Z79.811 Long term (current) use of aromatase inhibitors; Z79.891 Long term (current) use of opiate analgesic; Z79.51 Long term (current) use of inhaled steroids
CPT/HCPCS: 36415; 71020; 74177; 80053; 81001; 83605; 84484; 85025; 85610; 85730; 87040; 87077; 87086; 87186; 87502; 93005; 94640; 94760; 96365; 96366; 96375; 96376; 99285

== ENCOUNTER → 2017-06-12 | Outpatient (CLI) | payer OTHER ==
--- NOTE | 2017-06-12 09:58 | XR ---
EXAMINATION TYPE: XR abdomen 1V DATE OF EXAM: 06/12/2017 9:16 AM CLINICAL HISTORY: Right ureteral stone. Right flank pain since March TECHNIQUE: Single supine KUB image of the abdomen is obtained. COMPARISON: 03/19/2017. FINDINGS: The previously seen punctate ill-defined right renal calculus is not visualized radiographi [place]. Multiple phleboliths are noted within the low pelvis as well as calcification within the gonad al vein on the left on the prior CT of 03/19/2017. No suspicious calcifications along the courses of the ureters. Renal shadows are partially obscured by overlying bowel gas and stool. Moderate multilev el degenerative disc disease of the visualized thoracolumbar and lumbosacral spine is noted as well a s of the femoral acetabular joints and sacroiliac joints. Scattered gas is seen in non-distended smal l bowel loops. Gas and fecal material is seen in non-distended colon. IMPRESSION: 1. The previously seen punctate vague 2 mm right proximal ureteral calculus on the prior exam is not visualized radiographically. 2. Nonobstructive bowel gas pattern.
== END | disposition home or self-care (01) ==
LOC: RADXRMAIN 09:03
PROVIDERS: ATTEND Urology
DX: N20.1 Calculus of ureter (principal)
CPT/HCPCS: 74018

== ENCOUNTER → 2017-11-23 | Outpatient (CLI) | payer OTHER ==
--- NOTE | 2017-11-23 08:51 | US ---
EXAMINATION TYPE: US abdomen complete DATE OF EXAM: 11/23/2017 COMPARISON: NONE CLINICAL HISTORY: Renal Stones N20. EXAM MEASUREMENTS: Liver Length: 16.6 cm . Normal less than 15.5 cm. Gallbladder Wall: 0.2 cm CBD: 0.3 cm Spleen: 10.4 cm Right Kidney: 11.3 x 4.6 x 5.1 cm Left Kidney: 10.5 x 5.7 x 4.9 cm Morbidly obese patient, technically difficult and very limited study Pancreas: Obscured by bowel gas Liver: upper limits of normal in size, increased attenuation, decreased visualization of vessels Gallbladder: wnl Evidence for sonographic Leon's sign: no CBD: wnl Spleen: scattered echogenic foci noted throughout Right Kidney: echogenic foci noted, possible stone, upper and lower pole somewhat obscured by bowel gas Left Kidney: wnl Upper IVC: wnl Abd Aorta: mostly obscured by bowel gas, portions visualized wnl IMPRESSION: 1. Mild fatty infiltration of the enlarged liver. 2. Splenic granuloma. 3. Possible nonobstructing right renal stones.
== END | disposition home or self-care (01) ==
LOC: RADUSWWP 07:36
PROVIDERS: ATTEND Family Medicine
DX: K76.0 Fatty (change of) liver, not elsewhere classified (principal); D73.89 Other diseases of spleen
CPT/HCPCS: 76700

== ENCOUNTER → 2018-02-15 | Outpatient (CLI) | payer OTHER ==
[2018-02-15 12:48] LABS: Calcium 24 Hour,Urine 83.5 mg/24 hr
[2018-02-15 12:49] LABS: Creatinine 24 Hour,Urine 452.6 mg/24hr (800.0-1800.0)
[2018-02-15 12:51] LABS: ALT 36 U/L (9-52); AST 28 U/L (14-36); Albumin 4.2 g/dL (3.5-5.0); Alkaline Phosphatase 69 U/L (38-126); Anion Gap 10 mmol/L; Blood Urea Nitrogen 13 mg/dL (7-17); Calcium 9.7 mg/dL (8.4-10.2); Carbon Dioxide 26 mmol/L (22-30); Chloride 105 mmol/L (98-107); Glucose 111 mg/dL (74-99); Potassium 4.6 mmol/L (3.5-5.1); Sodium 141 mmol/L (137-145); Total Bilirubin 0.4 mg/dL (0.2-1.3); Total Protein 6.9 g/dL (6.3-8.2)
[2018-02-15 13:05] LABS: T4, Free (Free Thyroxine) 0.62 ng/dL (0.78-2.19)
[2018-02-15 19:59] LABS: Parathyroid Hormone Intact 48.4 pg/mL (14.0-72.0)
[2018-02-15 20:15] LABS: Vitamin D 25 Hydroxy 12.7 ng/mL (30.0-100.0)
[2018-02-17 10:19] LABS: Cortisol, Urine Free by LC-MS <4.0 ug/L; Free Cortisol 24 Hour,Urine SeeBelow ug/day (<45.0)
== END ==
LOC: LABWHC1 11:29
PROVIDERS: ATTEND Internal Medicine
DX: E55.9 Vitamin D deficiency, unspecified (principal); N20.0 Calculus of kidney; E66.9 Obesity, unspecified; R53.82 Chronic fatigue, unspecified
CPT/HCPCS: 36415; 80053; 81050; 82306; 82340; 82530; 82570; 82607; 83970; 84439; 84443

== ENCOUNTER → 2019-05-02 | Outpatient (CLI) | payer OTHER ==
--- NOTE | 2019-05-02 14:55 | BD ---
EXAMINATION TYPE: Axial Bone Density DATE OF EXAM: 05/02/2019 COMPARISON: NONE CLINICAL HISTORY: Height: 61 Weight: 295.8 FRAX RISK QUESTIONS: Alcohol (3 or more units per day): NO Family History (Parent hip fracture): no Glucocorticoids (More than 3mos): no (Ex: prednisone, prednisolone, methylprednisolone, dexamethasone, and hydrocortisone). History of Fracture in Adulthood: no Secondary Osteoporosis: 1. Type 1 Diabetes: no 2. Hyperthyroidism: no 3. Menopause before 45: no 4. Malnutrition: no 5. Chronic liver disease: no Rheumatoid Arthritis: no Current Tobacco Use: no RISK FACTORS HISTORY OF: Postmenopausal woman: yes Lost more than 2 inches in height since high school: no MEDICATIONS: Femara, Effexor, narco, lopressor, anxiety meds , heart meds, sleep aids, asthma meds Additional History: EXAM MEASUREMENTS: Bone mineral densitometry was performed using the [employer]. Bone mineral density as measured about the Lumbar spine is: ----- L1-L4(G/cm2): 1.406 T Score Values are as follows: ----- L2: 2.3 ----- L3: 1.9 ----- L4: 1.4 ----- L1-L4: 1.9 Bone mineral density has: decreased -1.6 % since study of: 04.03.2014 Bone mineral density about the R hip (g/cm2): 1.060 Bone mineral density about the L hip (g/cm2): 1.003 T Score values are as follows: -----R Neck: 0.2 -----L Neck: -0.2 -----R Total: 1.5 -----L Total: 1.4 Bone mineral density has: decreased -7.5 % since study of: 04.03.2014 IMPRESSION: Normal (Values between +1 and -1 indicate normal bone mass). Consider repeating this study in 5 year s or sooner if there is some new clinical indication. NOTE: T-SCORE=SD OF THE YOUNG ADULT MEAN.
--- NOTE | 2019-05-02 14:59 | MM ---
Reason for exam: additional evaluation requested from prior study. Last mammogram was performed 5 years and 8 months ago. History: Patient is postmenopausal and has history of bilateral breast cancer at age 51. Family history of breast cancer in paternal cousin at age 52. Malignant right breast needle localzation of both breasts, March 17, 2012. Malignant right breast needle localzation of both breasts, March 17, 2012. Left U/S Cancelled VAD Biopsy of both breasts, February 06, 2012. Malignant US RT VAD breast biopsy of the right breast, January 16, 2012. Malignant US RT VAD breast biopsy of the right breast, January 16, 2012. Lumpectomy. Benign MRI-guided biopsy of the left breast. Radiation therapy. Took estrogen for 6 months beginning at age 51. Took progesterone for 6 months beginning at age 51. Took antineoplastic for 7 years beginning at age 51. Physical Findings: Nurse did not find any significant physical abnormalities on exam. MG 3D Diag Mammo W/Cad KASSIE Bilateral CC and MLO view(s) were taken. Prior study comparison: September 12, 2013, left diagnostic mammogram w/CAD. January 16, 2012, right breast diagnostic digital kerry. The breast tissue is heterogeneously dense. This may lower the sensitivity of mammography. Finding #1: Architectural distortion in the upper outer quadrant, posterior position of the right breast consistent with known lumpectomy changes. Finding #2: There are typically benign vascular, round calcifications in both breasts. There is no discrete abnormality. These results were verbally communicated with the patient and result sheet given to the patient on 05/02/19. ASSESSMENT: Benign, BI-RAD 2 RECOMMENDATION: Follow-up diagnostic mammogram of both breasts in 1 year. Manage patient on a clinical basis.
== END ==
LOC: RADMAMWWP 13:13
PROVIDERS: ATTEND Internal Medicine Hematology & Oncology
DX: Z08 Encounter for follow-up examination after completed treatment for malignant neoplasm (principal); Z85.3 Personal history of malignant neoplasm of breast; N95.1 Menopausal and female climacteric states; Z79.890 Hormone replacement therapy
CPT/HCPCS: 77080; 77066; G0279; 77062

== ENCOUNTER → 2019-06-10 | Outpatient (CLI) | payer OTHER ==
--- NOTE | 2019-06-10 08:32 | US ---
EXAMINATION TYPE: US abdomen Limited DATE OF EXAM: 06/10/2019 COMPARISON: CT April 15 & US 2018 CLINICAL HISTORY: K82.9 Disease of gallbladder. Intermittent epigastric, RUQ and back pain and diarr hea x multiple years, gotten worse in the past couple months, gets worse after eating. EXAM MEASUREMENTS: Liver Length: 18.6 cm Gallbladder Wall: 0.3 cm CBD: 0.7 cm Right Kidney: 10.8 x 4.4 x 4.8 cm Difficult and limited study due to morbidly obese patient Pancreas: visualized portions wnl, limited by overlying midline bowel gas Liver: enlarged, heterogeneous, attenuating Gallbladder: mildly distended measuring 11.4cm in length, no stones seen, wall measures wnl Evidence for sonographic Leon's sign: yes CBD: dilated Right Kidney: wnl The visualized liver is heterogeneously hyperechoic. Findings consistent with diffuse fatty infiltrat ion. Evaluation for focal masses suboptimal due to the heterogeneity. The intrahepatic portion of the IVC is not well-seen. There is no evidence of cholelithiasis. Common bile duct is unremarkable. T he visualized portions of the pancreas are homogenous. Limited images right kidney show no gross hydr onephrosis with some cortical thinning. IMPRESSION: Suboptimal study, No gallstones or ultrasonic evidence for acute cholecystitis. Diffuse f atty infiltration liver redemonstrated.
== END | disposition home or self-care (01) ==
LOC: RADUSWWP 07:48
PROVIDERS: ATTEND Family Medicine
DX: K76.0 Fatty (change of) liver, not elsewhere classified (principal)
CPT/HCPCS: 76705

== ENCOUNTER → 2019-12-06 | Outpatient (CLI) | payer OTHER ==
[2019-12-06 09:41] LABS: African American GFR (CKD) >90 (>60 ml/min/1.73 sqM); Blood Urea Nitrogen 14 mg/dL (7-17); Non-African American GFR(CKD) >90 (>60 ml/min/1.73 sqM)
--- NOTE | 2019-12-06 12:49 | CT ---
EXAMINATION TYPE: CT ChestAbdPelvis w con DATE OF EXAM: 12/06/2019 COMPARISON: Abdomen pelvis 04/15/2018 HISTORY: 59-year-old female History of right breast and ovarian cancer. Right lower quadrant pain. TECHNIQUE: Contiguous axial scanning of the chest, abdomen, and pelvis performed with IV Contrast, pa tient injected with 100 mL of Isovue M300. Delayed images through the kidneys were obtained. Coronal/ sagittal reconstructions performed. CT DLP: 2706 mGycm Automated exposure control for dose reduction was used. FINDINGS: CHEST: Status post lateral right lumpectomy and right axillary node dissection. Calcified precarinal lymph nodes compatible with prior granulomatous disease. No thoracic lymphadenop athy by CT size criteria. Heart upper limits of normal in size without pericardial effusion. Mild LAD calcifications. Aorta normal caliber with conventional access of branching anatomy. Strandy atelectasis left lung. Anterior right basilar pulmonary nodule currently measures 7 mm, not significantly changed. No defini te new or enlarging pulmonary nodules. No consolidation or pleural effusion. Stable calcified granuloma peripheral right upper lobe. ABDOMEN: Liver enlarged at 20.7 cm with low attenuation compatible with fatty infiltration. Portal venous syst em is patent. No biliary ductal dilatation. Gallbladder, adrenal glands, kidneys with lobulated contours, and pancreas appear within normal limit s. Calcified granulomas within spleen. No dilated small bowel, free fluid, or free air. No mesenteric or retroperitoneal lymphadenopathy. Oral contrast progressed into the midtransverse colon. Mild stool burden. No pericolonic inflammatory change. Redundant sigmoid colon. PELVIS: Bladder partially distended. Multiple pelvic phleboliths. Uterus and ovaries are surgically absent. P hleboliths along the gonadal veins. No abnormal fluid collection in the pelvis or pelvic lymphadenopa thy. BONES: Degenerative change at the hips. Degenerative lower lumbar spine. Anterior endplate spondylosis lower thoracic spine. No osseous destructive process seen. IMPRESSION: 1. STATUS POST LATERAL RIGHT BREAST LUMPECTOMY AND AXILLARY NODE DISSECTION. ALSO, STATUS POST HYSTER ECTOMY AND BILATERAL SALPINGO-OOPHORECTOMIES. 2. A 7 MM RIGHT BASILAR PULMONARY NODULE REMAINS UNCHANGED SUGGESTING A BENIGN ETIOLOGY. NO RECURRENT OR PROGRESSIVE DISEASE IDENTIFIED. 3. HEPATOMEGALY (20.7 CM) WITH FATTY INFILTRATION OF THE LIVER.
--- NOTE | 2019-12-06 16:58 | NM ---
EXAMINATION TYPE: NM bone scan whole body DATE OF EXAM: 12/06/2019 COMPARISON: Correlation CT same day HISTORY: 59-year-old female with history of breast cancer, right lower abdominal pain. Technique: Delayed whole-body scanning was performed following the injection of 22.3 mCi Tc 99m MDP. Images acquired 3 hours post injection. FINDINGS: Left arm injection site shows intense focal uptake. There are additional 3 small foci of intense upta ke in the region of the left axilla suggesting some lymphatic uptake to downstream lymph nodes from s ome infiltration at the IV site. Some degenerative activity at the left knee and scattered throughout the right foot. No suspicious di stribution of tracer activity to suggest osseous metastatic disease. IMPRESSION: 1. 3 small foci of intense activity in the region of the left axilla likely from lymphatic uptake and lymph node activity relating to some infiltration at the left upper extremity injection site. 2. No suspicious distribution of activity to suggest osseous metastatic disease.
== END | disposition home or self-care (01) ==
LOC: RADCTMAIN 09:01
PROVIDERS: ATTEND Internal Medicine Hematology & Oncology
DX: C50.411 Malignant neoplasm of upper-outer quadrant of right female breast (principal); R10.31 Right lower quadrant pain; Z88.2 Allergy status to sulfonamides; Z88.6 Allergy status to analgesic agent; Z90.11 Acquired absence of right breast and nipple; Z90.710 Acquired absence of both cervix and uterus; R91.1 Solitary pulmonary nodule; R16.0 Hepatomegaly, not elsewhere classified; K76.0 Fatty (change of) liver, not elsewhere classified
CPT/HCPCS: 82565; 84520; 71260; 74177; 36415; 78306; A9503; Q9967 ×2

== ENCOUNTER → 2020-08-03 | Outpatient (CLI) | payer OTHER ==
--- NOTE | 2020-08-06 10:23 | MM ---
Reason for exam: additional evaluation requested from prior study. Last mammogram was performed 1 year and 3 months ago. History: Patient is postmenopausal and has history of bilateral breast cancer at age 51. Family history of breast cancer in paternal cousin at age 52. Malignant right breast needle localzation of both breasts, March 17, 2012. Malignant right breast needle localzation of both breasts, March 17, 2012. Left U/S Cancelled VAD Biopsy of both breasts, February 06, 2012. Malignant US RT VAD breast biopsy of the right breast, January 16, 2012. Malignant US RT VAD breast biopsy of the right breast, January 16, 2012. Lumpectomy. Benign MRI-guided biopsy of the left breast. Radiation therapy. Took estrogen for 3 months beginning at age 49. Took progesterone for 3 months beginning at age 49. Physical Findings: Nurse did not find any significant physical abnormalities on exam. MG 3D Diag Mammo W/Cad KASSIE Bilateral CC and MLO view(s) were taken. Prior study comparison: May 02, 2019, bilateral MG 3d diag mammo w/cad KASSIE. September 12, 2013, left diagnostic mammogram w/CAD. There are scattered fibroglandular densities. Post surgical changes right upper outer quadrant. No significant new findings when compared with previous films. These results were verbally communicated with the patient and result sheet given to the patient on 08/03/20. ASSESSMENT: Benign, BI-RAD 2 RECOMMENDATION: Routine screening mammogram of both breasts in 1 year. Manage on a clinical basis with regard to skin thickening.
== END ==
LOC: RADMAMWWP 14:16
PROVIDERS: ATTEND Internal Medicine Hematology & Oncology
DX: R92.8 Other abnormal and inconclusive findings on diagnostic imaging of breast (principal); Z85.3 Personal history of malignant neoplasm of breast
CPT/HCPCS: 77066; G0279; 77062

== ENCOUNTER → 2021-09-13 | Outpatient (CLI) | payer OTHER ==
--- NOTE | 2021-09-18 08:21 | MM ---
Reason for exam: screening (asymptomatic). Last mammogram was performed 1 year and 1 month ago. History: Patient is postmenopausal, has history of ovarian cancer at age 52, and has history of bilateral breast cancer at age 47. Family history of breast cancer in paternal cousin at age 52. Malignant right breast needle localzation of both breasts, March 17, 2012. Malignant right breast needle localzation of both breasts, March 17, 2012. Left U/S Cancelled VAD Biopsy of both breasts, February 06, 2012. Malignant US RT VAD breast biopsy of the right breast, January 16, 2012. Malignant US RT VAD breast biopsy of the right breast, January 16, 2012. Lumpectomy. Benign MRI-guided biopsy of the left breast. Radiation therapy. Took estrogen for 3 months beginning at age 49. Took progesterone for 3 months beginning at age 49. Physical Findings: A clinical breast exam by your physician is recommended on an annual basis and results should be correlated with mammographic findings. MG 3D Screening Mammo W/Cad Bilateral CC and MLO view(s) were taken. Prior study comparison: August 03, 2020, bilateral MG 3d diag mammo w/cad KASSIE. May 02, 2019, bilateral MG 3d diag mammo w/cad KASSIE. Asymmetric breast tissue left upper outer quadrant, 6-7cm from nipple. This finding is changed when compared with previous exams. ASSESSMENT: Incomplete: need additional imaging evaluation, BI-RAD 0 RECOMMENDATION: Ultrasound of both breasts. (ultrasound palpable right breast, new lumps, not scar) [facility] will attempt to contact patient to return for ultrasound.
== END | disposition home or self-care (01) ==
LOC: RADMAMWWP 16:06
PROVIDERS: ATTEND Internal Medicine Hematology & Oncology
DX: Z12.31 Encounter for screening mammogram for malignant neoplasm of breast (principal); Z78.0 Asymptomatic menopausal state; Z85.3 Personal history of malignant neoplasm of breast; Z85.43 Personal history of malignant neoplasm of ovary; Z80.3 Family history of malignant neoplasm of breast
CPT/HCPCS: 77063; 77067

== ENCOUNTER → 2021-09-23 | Outpatient (CLI) | payer OTHER ==
--- NOTE | 2021-09-23 14:14 | USB ---
Reason for exam: additional evaluation requested from abnormal screening. History: Patient is postmenopausal, has history of ovarian cancer at age 52, and has history of bilateral breast cancer at age 47. Family history of breast cancer in paternal cousin at age 52. Malignant right breast needle localzation of both breasts, March 17, 2012. Malignant right breast needle localzation of both breasts, March 17, 2012. Left U/S Cancelled VAD Biopsy of both breasts, February 06, 2012. Malignant US RT VAD breast biopsy of the right breast, January 16, 2012. Malignant US RT VAD breast biopsy of the right breast, January 16, 2012. Lumpectomy. Benign MRI-guided biopsy of the left breast. Radiation therapy. Took estrogen for 3 months beginning at age 49. Took progesterone for 3 months beginning at age 49. Physical Findings: A clinical breast exam by your physician is recommended on an annual basis and results should be correlated with mammographic findings. US Breast Workup Limited KASSIE Left limited breast ultrasound including focal area of concern, retroareolar and axilla demonstrates no cystic or solid lesion seen, negative. Right limited breast ultrasound including focal area of concern, retroareolar and axilla demonstrates a scar, probably benign, manage clinically. May be scar, cannot exclude mass. Results were given to the patient verbally at the time of the exam. ASSESSMENT: Probably benign, BI-RAD 3 RECOMMENDATION: Clinical management and breast MRI of both breasts. (if physician feels warranted)
== END | disposition home or self-care (01) ==
LOC: RADUSWWP 12:09
PROVIDERS: ATTEND Internal Medicine Hematology & Oncology
DX: R92.8 Other abnormal and inconclusive findings on diagnostic imaging of breast (principal); Z78.0 Asymptomatic menopausal state; Z85.43 Personal history of malignant neoplasm of ovary; Z85.3 Personal history of malignant neoplasm of breast; Z80.3 Family history of malignant neoplasm of breast; Z92.3 Personal history of irradiation

== ENCOUNTER → 2022-09-15 | Outpatient (CLI) | payer OTHER ==
--- NOTE | 2022-09-16 06:42 | MM ---
Reason for Exam: Screening (asymptomatic). Last screening mammogram was performed 12 month(s) ago. Patient History: Menarche at age 12. First Full-Term at age 22. Left ovary removed at age 52. Right ovary removed at age 52. Hysterectomy at age 52. Postmenopausal. Breast cancer, right, age 47. Ovarian cancer, age 52. Estrogen for 3 months starting at age 49. Progesterone for 3 months starting at age 49. Benign Core Biopsy on the left side. Lumpectomy. 03/17/2012, Bilateral Malignant Excisional Biopsy. 03/17/2012, Bilateral Malignant Excisional Biopsy. 01/16/2012, Malignant Core Biopsy on the right side. 01/16/2012, Malignant Core Biopsy on the right side. Radiation Therapy. 02/06/2012, Bilateral Left U/S Cancelled VAD Biopsy. Paternal cousin had breast cancer, age 52. Prior Study Comparison: 05/02/2019 Bilateral Diagnostic Mammogram, [facility]. 08/03/2020 Bilateral Diagnostic Mammogram, [facility]. 09/13/2021 Bilateral Screening Mammogram, [facility]. Tissue Density: There are scattered fibroglandular densities. Findings: Analyzed By CAD. Diminished size of the right breast with distortion and surgical clips posterior upper outer quadrant from prior cancer treatment are redemonstrated. There are benign-appearing tiny round and vascular calcifications bilaterally redemonstrated. There is no suspicious new group of microcalcifications or new suspicious mass in either breast. Overall Assessment: Benign, BI-RAD 2 Management: Screening Mammogram of both breasts in 1 year. A clinical breast exam by your physician is recommended on an annual basis and results should be correlated with mammographic findings. Electronically signed and approved by: Ministerio Yip M.D.
== END | disposition home or self-care (01) ==
LOC: RADMAMWWP 13:42
PROVIDERS: ATTEND Internal Medicine Hematology & Oncology
DX: Z12.31 Encounter for screening mammogram for malignant neoplasm of breast (principal); Z78.0 Asymptomatic menopausal state; Z80.3 Family history of malignant neoplasm of breast
CPT/HCPCS: 77063; 77067

== ENCOUNTER → 2023-09-17 | Outpatient (CLI) | payer OTHER ==
--- NOTE | 2023-09-17 20:38 | MM ---
Reason for Exam: Screening (asymptomatic). Last screening mammogram was performed 12 month(s) ago. Patient History: Menarche at age 12. First Full-Term at age 22. Left ovary removed at age 52. Right ovary removed at age 52. Hysterectomy at age 52. Postmenopausal. Patient has history of breast feeding. Breast cancer, right, age 47. Ovarian cancer, age 52. Estrogen for 3 months starting at age 49. Progesterone for 3 months starting at age 49. Benign Core Biopsy on the left side. Lumpectomy. 03/17/2012, Bilateral Malignant Excisional Biopsy. 03/17/2012, Bilateral Malignant Excisional Biopsy. 01/16/2012, Malignant Core Biopsy on the right side. 01/16/2012, Malignant Core Biopsy on the right side. Radiation Therapy. 02/06/2012, Bilateral Left U/S Cancelled VAD Biopsy. Paternal cousin had breast cancer, age 52. Prior Study Comparison: 08/03/2020 Bilateral Diagnostic Mammogram, [facility]. 09/13/2021 Bilateral Screening Mammogram, [facility]. 09/15/2022 Bilateral MG 3D screening mammo w/cad, [facility]. Tissue Density: There are scattered areas of fibroglandular density. Findings: Analyzed By CAD. The pattern is symmetrical. Postsurgical changes are within the upper outer right breast. Benign vascular calcifications present bilaterally. No suspicious groups of microcalcifications, spiculated or lobular masses, architectural distortion or other secondary signs of malignancy are mammographically apparent. Overall Assessment: Benign, BI-RAD 2 Management: Screening Mammogram of both breasts in 1 year. A negative mammogram report should not preclude additional follow up of suspicious palpable abnormalities. Patient should continue monthly self breast exam. A clinical breast exam by your physician is recommended on an annual basis and results should be correlated with mammographic findings. Note on Pattie scores and lifetime risk: 1. A Pattie score greater than 3% is considered moderate risk. If this is the case, consider specialist referral to assess eligibility for a risk reducing agent. 2. If overall lifetime risk for the development of breast cancer is 20% or higher, the patient may qualify for future screening with alternating mammogram and breast MRI. Electronically signed and approved by: Gomez Angeles D.O. Radiologis
== END | disposition home or self-care (01) ==
LOC: RADMAMWWP 12:56
PROVIDERS: ATTEND Internal Medicine Hematology & Oncology
DX: Z12.31 Encounter for screening mammogram for malignant neoplasm of breast (principal); Z78.0 Asymptomatic menopausal state; Z80.3 Family history of malignant neoplasm of breast
CPT/HCPCS: 77063; 77067

== ENCOUNTER 2023-10-21 12:50 | Emergency (ER) | payer OTHER ==
--- NOTE | 2023-10-21 13:26 | ED ---
Back Pain HPI - General Chief Complaint: Back Pain/Injury Stated Complaint: Devin flank pain,Nausea Time Seen by Provider: 10/21/23 13:10 Source: patient, RN notes reviewed Limitations: no limitations - History of Present Illness Initial Comments: This is a 63-year-old female presents to the emergency department chief complaint of left-sided abdominal and flank pain over the past 2 weeks. Patient is also been experiencing nausea and vomiting, fevers, hematuria, dysuria, and increase in urinary frequency and urgency. Patient underwent a spinal lumbar fusion surgery in August with no complications. She followed up with her surgeon this morning where she was instructed to report to the ER for further evaluation. Patient does have a history of kidney stones. Denies previous abdominal surgical history. - Related Data Home Medications Medication Instructions Recorded Confirmed Budesonide/Formoterol Fumarate 1 puff INHALATION RT-BID 03/19/17 03/19/17 [Symbicort 160-4.5 Mcg Inhaler] Cetirizine HCl [Zyrtec] 10 mg PO DAILY PRN 03/19/17 03/19/17 Chlorthalidone 25 mg PO DAILY 03/19/17 03/19/17 HYDROcodone/APAP 7.5-325MG [[place] 1 tab PO TID 03/19/17 03/19/17 7.5-325] Ibuprofen [Advil] 200 mg PO Q8HR PRN 03/19/17 03/19/17 Letrozole [Femara] 2.5 mg PO DAILY 03/19/17 03/19/17 QUEtiapine [SEROquel] 50 mg PO HS 03/19/17 03/19/17 Topiramate [Topamax] 25 mg PO BID 03/19/17 03/19/17 Venlafaxine HCl [Effexor XR] 75 mg PO DAILY 03/19/17 03/19/17 cloNIDine HCL [Catapres] 0.3 mg PO TID 03/19/17 03/19/17 clonazePAM [KlonoPIN] 0.5 mg PO TID 03/19/17 03/19/17 diphenhydrAMINE HCL [Benadryl] 25 mg PO DAILY PRN 03/19/17 03/19/17 Previous Rx's Medication Instructions Recorded Acetaminophen Tab [Tylenol] 650 mg PO Q6HR PRN tab 03/21/17 cefUROXime axetiL [Ceftin] 500 mg PO BID #8 tab 03/21/17 Nitrofurantoin Monohyd/M-Cryst 100 mg PO Q12HR #14 cap 10/21/23 [Macrobid] Ondansetron Odt [Zofran Odt] 4 mg PO Q8HR PRN #10 tab 10/21/23 Allergies Allergy/AdvReac Type Severity Reaction Status Date / Time Sulfa (Sulfonamide Allergy Rash/Hives Verified 10/21/23 12:58 Antibiotics) ibuprofen [From Motrin] AdvReac Nausea & Verified 10/21/23 12:58 Vomiting Review of Systems ROS Statement: Those systems with pertinent positive or pertinent negative responses have been documented in the HPI. ROS Other: All systems not noted in ROS Statement are negative. Past Medical History Past Medical History: Asthma, Cancer, Hypertension Additional Past Medical History / Comment(s): BREAST (2011) AND LEFT OVARIAN (2012)CANCER History of Any Multi-Drug Resistant Organisms: None Reported Past Surgical History: Hysterectomy Additional Past Surgical History / Comment(s): PARTIAL right MASTECTOMY Past Anesthesia/Blood Transfusion Reactions: No Reported Reaction Past Psychological History: No Psychological Hx Reported, Depression Smoking Status: Former smoker Past Alcohol Use History: Occasional Past Drug Use History: None Reported General Exam - General Exam Comments Initial Comments: Visual Physical Exam Vital signs reviewed General: Well-appearing, nontoxic, no acute distress. Head: Normocephalic, atraumatic Eyes: PERRLA, EOMI ENT: Airway patent Chest: Nonlabored breathing Skin: No visual rash, normal skin tone Neuro: Alert and oriented 3 Musculoskeletal: No gross abnormalities Limitations: no limitations General appearance: alert, in no apparent distress Head exam: Present: atraumatic, normocephalic, normal inspection Eye exam: Present: normal appearance, PERRL, EOMI. Absent: scleral icterus, conjunctival injection, periorbital swelling ENT exam: Present: normal exam, mucous membranes moist Neck exam: Present: normal inspection. Absent: tenderness, meningismus, lymphadenopathy Respiratory exam: Present: normal lung sounds bilaterally. Absent: respiratory distress, wheezes, rales, rhonchi, stridor Cardiovascular Exam: Present: regular rate, normal rhythm, normal heart sounds. Absent: systolic murmur, diastolic murmur, rubs, gallop, clicks GI/Abdominal exam: Present: soft, tenderness (suprapubic), normal bowel sounds. Absent: distended, guarding, rebound, rigid Extremities exam: Present: normal inspection, full ROM, normal capillary refill. Absent: tenderness, pedal edema, joint swelling, calf tenderness Back exam: Present: tenderness (left and right lumbar), other (post surgical lumbar incisions) Neurological exam: Present: alert, oriented X3, CN II-XII intact Psychiatric exam: Present: normal affect, normal mood Skin exam: Present: warm, dry, intact, normal color. Absent: rash Course Vital Signs 10/21/23 10/21/23 12:52 17:40 Temperature 98.3 F Pulse Rate 97 84 Respiratory 18 18 Rate Blood Pressure 142/98 174/102 O2 Sat by Pulse 96 Oximetry Medical Decision Making - Medical Decision Making Was pt. sent in by a medical professional or institution (, PA, HAND II TUBE BENDER, urgent care, hospital, or fci...) When possible be specific @ -No Did you speak to anyone other than the patient for history (EMS, parent, family, police, friend...)? What history was obtained from this source @ -No Did you review nursing and triage notes (agree or disagree)? Why? @ -I reviewed and agree with nursing and triage notes Were old charts reviewed (outside hosp., previous admission, EMS record, old EKG, old radiological studies, urgent care reports/EKG's, fci records)? Report findings @ -No old charts were reviewed Differential Diagnosis (chest pain, altered mental status, abdominal pain women, abdominal pain men, vaginal bleeding, weakness, fever, dyspnea, syncope, headache, dizziness, GI bleed, back pain, seizure, CVA, palpatations, mental health, musculoskeletal)? @ -Differential Abdominal Pain Women: Appendicitis, Cholecystitis, diverticulosis, ischemic bowel, pancreatitis, hepatitis, UTI, gastroenteritis, AAA, incarcerated hernia, bowel obstruction, constipation, inflammatory bowel, hepatitis, peptic ulcer disease, splenic infarction, perforated viscus, vulvitis, ovarian torsion, PID, kidney stone, placenta abruption, this is not meant to be an all-inclusive list EKG interpreted by me (3pts min.). @ -None X-rays interpreted by me (1pt min.). @ -None done CT interpreted by me (1pt min.). @ -CT of the abdomen and pelvis with contrast reveals no evidence for acute intra-abdominal proces U/S interpreted by me (1pt. min.). @ -None done What testing was considered but not performed or refused? (CT, X-rays, U/S, labs)? Why? @ -None What meds were considered but not given or refused? Why? @ -None Did you discuss the management of the patient with other professionals (professionals i.e. Dr., PA, HAND II TUBE BENDER, lab, RT, psych nurse, high school social science teacher, accounts payable technician, teacher, project control officer, child welfare caseworker)? Give summary @ -No Was smoking cessation discussed for >3mins.? @ -No Was critical care preformed (if so, how long)? @ -No Were there social determinants of health that impacted care today? How? (Homelessness, low income, unemployed, alcoholism, drug addiction, transportation, low edu. Level, literacy, decrease access to med. care, alf, rehab)? @ -No Was there de-escalation of care discussed even if they declined (Discuss DNR or withdrawal of care, Hospice)? DNR status @ -No What co-morbidities impacted this encounter? (DM, HTN, Smoking, COPD, CAD, Cancer, CVA, ARF, Chemo, Hep., AIDS, mental health diagnosis, sleep apnea, morbid obesity)? @ -None Was patient admitted / discharged? Hospital course, mention meds given and route, prescriptions, significant lab abnormalities, going to OR and other pertinent info. @ -63-year-old female with abdominal pain, urinary symptoms. Patient was originally seen as a quick note where abdominal labs were ordered and given an IV push of pain medication. On reevaluation patient is noted to have mild suprapubic tenderness on palpation. Patient surgical site is clean with no signs of infection. CBC, CMP, coagulation profile within normal limits. Urinalysis remarkable for signs of infection including small blood, 1+ protein, large leukocyte esterase, greater than [address] unremarkable. Patient will be given 2 g IV push of Rocephin and will be discharged home with antibiotics and antinausea medication for urinary tract infection. Strict return parameters discussed with the patient, she is in agreement with this. All questions answered at bedside. Recommend follow-up with patient's primary care provider within the next 3 days for further evaluation. Case discussed with Dr. Wilson Undiagnosed new problem with uncertain prognosis? @ -No Drug Therapy requiring intensive monitoring for toxicity (Heparin, Nitro, Insulin, Cardizem)? @ -No Were any procedures done? @ -No Diagnosis/symptom? @ -Urinary tract infection Acute, or Chronic, or Acute on Chronic? @ -Acute Uncomplicated (without systemic symptoms) or Complicated (systemic symptoms)? @ -Uncomplicated Side effects of treatment? @ -No Exacerbation, Progression, or Severe Exacerbation? @ -No Poses a threat to life or bodily function? How? (Chest pain, USA, PA, pneumonia, PE, COPD, DKA, ARF, appy, cholecystitis, CVA, Diverticulitis, Homicidal, Suicidal, threat to staff... and all critical care pts) @ -No - Lab Data Result diagrams: 10/21/23 14:27 10/21/23 14:27 Lab Results 10/21/23 10/21/23 10/21/23 Range/Units 14:27 14:27 14:27 WBC 9.5 (3.8-10.6) k/uL RBC 4.55 (3.80-5.40) m/uL Hgb 14.5 (11.4-16.0) gm/dL Hct 44.4 (34.0-46.0) % MCV 97.6 (80.0-100.0) fL MCH 31.8 (25.0-35.0) pg MCHC 32.6 (31.0-37.0) g/dL RDW 11.9 (11.5-15.5) % Plt Count 391 (150-450) k/uL MPV 7.1 Neutrophils % 74 % Lymphocytes % 17 % Monocytes % 6 % Eosinophils % 2 % Basophils % 0 % Neutrophils # 7.1 (1.3-7.7) k/uL Lymphocytes # 1.6 (1.0-4.8) k/uL Monocytes # 0.5 (0-1.0) k/uL Eosinophils # 0.2 (0-0.7) k/uL Basophils # 0.0 (0-0.2) k/uL PT 10.2 (10.0-12.5) sec INR 0.9 (<1.2) APTT 26.1 (22.0-30.0) sec Sodium (137-145) mmol/L Potassium (3.5-5.1) mmol/L Chloride (98-107) mmol/L Carbon Dioxide (22-30) mmol/L Anion Gap mmol/L BUN (7-17) mg/dL Creatinine (0.52-1.04) mg/dL Est GFR (CKD-EPI)AfAm (>60 ml/min/1.73 sqM) Est GFR (CKD-EPI)NonAf (>60 ml/min/1.73 sqM) Glucose (74-99) mg/dL Calcium (8.4-10.2) mg/dL Total Bilirubin (0.2-1.3) mg/dL AST (14-36) U/L ALT (4-34) U/L Alkaline Phosphatase (38-126) U/L Total Protein (6.3-8.2) g/dL Albumin (3.5-5.0) g/dL Urine Color Yellow Urine Appearance Cloudy H (Clear) Urine pH 5.5 (5.0-8.0) Ur Specific [place] 1.043 H (1.001-1.035) Urine Protein 1+ H (Negative) Urine Glucose (UA) Negative (Negative) Urine Ketones Negative (Negative) Urine Blood Small H (Negative) Urine Nitrite Negative (Negative) Urine Bilirubin 1+ H (Negative) Urine Urobilinogen 2.0 (<2.0) mg/dL Ur Leukocyte Esterase Large H (Negative) Urine RBC 14 H (0-5) /hpf Urine WBC >182 H (0-5) /hpf Urine WBC Clumps Occasional H (None) /hpf Ur Squamous Epith Cells 10 H (0-4) /hpf Urine Bacteria Rare H (None) /hpf Hyaline Casts 4 H (0-2) /lpf Urine Mucus Occasional H (None) /hpf 10/21/23 Range/Units 14:27 WBC (3.8-10.6) k/uL RBC (3.80-5.40) m/uL Hgb (11.4-16.0) gm/dL Hct (34.0-46.0) % MCV (80.0-100.0) fL MCH (25.0-35.0) pg MCHC (31.0-37.0) g/dL RDW (11.5-15.5) % Plt Count (150-450) k/uL MPV Neutrophils % % Lymphocytes % % Monocytes % % Eosinophils % % Basophils % % Neutrophils # (1.3-7.7) k/uL Lymphocytes # (1.0-4.8) k/uL Monocytes # (0-1.0) k/uL Eosinophils # (0-0.7) k/uL Basophils # (0-0.2) k/uL PT (10.0-12.5) sec INR (<1.2) APTT (22.0-30.0) sec Sodium 138 (137-145) mmol/L Potassium 4.2 (3.5-5.1) mmol/L Chloride 103 (98-107) mmol/L Carbon Dioxide 26 (22-30) mmol/L Anion Gap 9 mmol/L BUN 8 (7-17) mg/dL Creatinine 0.50 L (0.52-1.04) mg/dL Est GFR (CKD-EPI)AfAm >90 (>60 ml/min/1.73 sqM) Est GFR (CKD-EPI)NonAf >90 (>60 ml/min/1.73 sqM) Glucose 113 H (74-99) mg/dL Calcium 9.8 (8.4-10.2) mg/dL Total Bilirubin 0.7 (0.2-1.3) mg/dL AST 27 (14-36) U/L ALT 13 (4-34) U/L Alkaline Phosphatase 112 (38-126) U/L Total Protein 7.3 (6.3-8.2) g/dL Albumin 4.2 (3.5-5.0) g/dL Urine Color Urine Appearance (Clear) Urine pH (5.0-8.0) Ur Specific [place] (1.001-1.035) Urine Protein (Negative) Urine Glucose (UA) (Negative) Urine Ketones (Negative) Urine Blood (Negative) Urine Nitrite (Negative) Urine Bilirubin (Negative) Urine Urobilinogen (<2.0) mg/dL Ur Leukocyte Esterase (Negative) Urine RBC (0-5) /hpf Urine WBC (0-5) /hpf Urine WBC Clumps (None) /hpf Ur Squamous Epith Cells (0-4) /hpf Urine Bacteria (None) /hpf Hyaline Casts (0-2) /lpf Urine Mucus (None) /hpf Disposition Clinical Impression: Urinary tract infection Narrative: Return to the emergency department symptoms worsen or improve. Complete full course of antibiotics as prescribed. Disposition: HOME SELF-CARE Condition: Good Instructions (If sedation given, give patient instructions): Urinary Tract Infection in Women (DC) Prescriptions: Nitrofurantoin Monohyd/M-Cryst [Macrobid] 100 mg PO Q12HR #14 cap Ondansetron Odt [Zofran Odt] 4 mg PO Q8HR PRN #10 tab PRN Reason: Nausea Is patient prescribed a controlled substance at d/c from ED?: No Referrals: Ang Anguiano MD [Primary Care Provider] - 1-2 days Time of Disposition: 16:13
[2023-10-21 13:34] VITALS: RESP 18; TEMP 98.3
[2023-10-21 14:40] LABS: Basophils % (A) 0 %; Eosinophils # (A) 0.2 k/uL (0-0.7); Eosinophils % (A) 2 %; HCT 44.4 % (34.0-46.0); HGB 14.5 gm/dL (11.4-16.0); Lymphocytes # (A) 1.6 k/uL (1.0-4.8); Lymphocytes % (A) 17 %; MCH 31.8 pg (25.0-35.0); MCHC 32.6 g/dL (31.0-37.0); MCV 97.6 fL (80.0-100.0); Mean Platelet Volume 7.1; Monocytes # (A) 0.5 k/uL (0-1.0); Monocytes % (A) 6 %; Neutrophils # (A) 7.1 k/uL (1.3-7.7); Neutrophils % (A) 74 %; Platelet Count 391 k/uL (150-450); RBC 4.55 m/uL (3.80-5.40); RDW 11.9 % (11.5-15.5); WBC 9.5 k/uL (3.8-10.6)
[2023-10-21 14:50] LABS: INR 0.9 (<1.2); Partial Thromboplastin Time 26.1 sec (22.0-30.0); Prothrombin Time 10.2 sec (10.0-12.5)
[2023-10-21 14:53] LABS: ALT 13 U/L (4-34); AST 27 U/L (14-36); African American GFR (CKD) >90 (>60 ml/min/1.73 sqM); Albumin 4.2 g/dL (3.5-5.0); Alkaline Phosphatase 112 U/L (38-126); Anion Gap 9 mmol/L; Blood Urea Nitrogen 8 mg/dL (7-17); Calcium 9.8 mg/dL (8.4-10.2); Carbon Dioxide 26 mmol/L (22-30); Chloride 103 mmol/L (98-107); Glucose 113 mg/dL (74-99); Non-African American GFR(CKD) >90 (>60 ml/min/1.73 sqM); Potassium 4.2 mmol/L (3.5-5.1); Sodium 138 mmol/L (137-145); Total Bilirubin 0.7 mg/dL (0.2-1.3); Total Protein 7.3 g/dL (6.3-8.2)
--- NOTE | 2023-10-21 15:01 | CT ---
EXAMINATION TYPE: CT abdomen pelvis wo con CT DLP: 1150.4 mGycm, Automated exposure control for dose reduction was used. DATE OF EXAM: 10/21/2023 2:13 PM COMPARISON: CT abdomen pelvis most recent from 12/06/2019 CLINICAL INDICATION:Female, 63 years old with history of left flank and ab pain, urinary sx, hx back surger; LT flank pain and abdominal pain, recent urinary sx, back sx. No contrast. TECHNIQUE: Axial CT abdomen pelvis wo con;Sagittal and coronal reformats were created on a separate workstation. Contrast used: mL of , (none if empty) Oral contrast used: without Oral Contrast (none if empty) FINDINGS: LOWER CHEST: Intrafissural lymph node along the right major fissure series 201 image 51 ABDOMEN LIVER: Unremarkable GALLBLADDER AND BILE DUCTS: Unremarkable. PANCREAS: Unremarkable. SPLEEN: Scattered calcified granulomas. ADRENAL GLANDS: Unremarkable. KIDNEYS AND URETERS: No evidence of hydronephrosis or renal calculus. The ureters are unremarkable. Calcifications along the gonadal veins bilaterally. PELVIS BLADDER: Decompressed and grossly unremarkable. REPRODUCTIVE: The uterus is surgically absent. ABDOMEN & PELVIS STOMACH AND BOWEL: No evidence of bowel obstruction. Scattered colonic diverticula. The colon courses anterior and superior to the liver. The left colon is nondistended extending from the distal transve rse colon to the sigmoid colon. The appendix is normal. PERITONEUM/RETROPERITONEUM: No evidence of pneumoperitoneum or free fluid. VASCULATURE: No evidence of aortic aneurysm. MUSCULOSKELETAL: No acute osseous abnormalities, postsurgical changes at L4 and L5. Hardware appears intact. Degeneration changes of the hips with osteophyte formation and joint space narrowing. LYMPH NODES: No gross evidence for lymphadenopathy. SOFT TISSUE/ABDOMINAL WALL: Unremarkable IMPRESSION: 1. No evidence for acute abdominal process to explain the patient's pain. 2. No evidence for obstructive uropathy. Calcification along the left ureter gonadal vein noted. 3. Colonic diverticulosis. 4. Sequela of granulomatous disease involving the spleen.
[2023-10-21 15:12] LABS: Appearance,Urine Cloudy (Clear); Bacteria,Urine Rare /hpf; Bilirubin,Urine 1+ (Negative); Blood,Urine Small (Negative); Color,Urine Yellow; Glucose,Urine (UA) Negative (Negative); Hyaline Casts,Urine 4 /lpf (0-2); Ketones,Urine Negative (Negative); Leukocyte Esterase,Urine Large (Negative); Mucus,Urine Occasional /hpf; Nitrite,Urine Negative (Negative); PH, Urine 5.5 (5.0-8.0); Protein,Urine 1+ (Negative); RBC,Urine 14 /hpf (0-5); Specific Gravity,Urine 1.043 (1.001-1.035); Squamous Epithelial Cell,Urine 10 /hpf (0-4); WBC,Urine >182 /hpf (0-5)
[2023-10-21] MEDS: ONDANSETRON 4 MG/2 ML VIAL IVP STA (15:43)
[2023-10-21] MEDS: HYDROmorphone 1 MG/ML 1 ML SYRINGE IVP STA (15:44)
[2023-10-21] MEDS: SODIUM CHLORIDE 0.9% 1,000 ML IV STA (15:44)
[2023-10-21] MEDS: cefTRIAXone IN SWFI 1,000 MG/10 ML SYRINGE IVP STA ×2 (16:05→16:38)
[2023-10-21] MEDS: MORPHINE SULFATE 2 MG/ML SYRINGE IVP ONE (16:34)
[2023-10-21 18:02] VITALS: BP 174/102; PULSE 84
== END 2023-10-21 17:42 | disposition home or self-care (01) ==
LOC: EC 12:50
DX: N39.0 Urinary tract infection, site not specified (principal); K57.30 Diverticulosis of large intestine without perforation or abscess without bleeding; Z87.891 Personal history of nicotine dependence; Z88.6 Allergy status to analgesic agent; Z88.2 Allergy status to sulfonamides
CPT/HCPCS: 36415; 80053; 85025; 85610; 85730; 81001; 74176; 99284; 96374; 96375 ×3; 96376; 96361; J2405; J0696; J2270; J1170